=== PATIENT | female | born 1995 | race Caucasian/White ===

== ENCOUNTER 2018-12-21 05:41 | Inpatient (IN) | payer OTHER ==
[~2018-12-21] VITALS: Ht 160 cm; Wt 78.5 kg
[2018-12-21] MEDS ORDERED: PRENATAL TABLE1 EAC1 PO (09:19)
== END 2018-12-23 14:49 | disposition home or self-care (01) | DRG 807 ==
LOC: LDR 05:41 → OB/GYN 05:41 → LDR 09:17 → OB/GYN 16:48
PROVIDERS: ADMIT Obstetrics & Gynecology
PROC: 10E0XZZ Delivery of Products of Conception, External Approach (ICD-10-PCS; principal; 2018-12-21)
PROC: 0HQ9XZZ Repair Perineum Skin, External Approach (ICD-10-PCS; 2018-12-21)
PROC: 10907ZC Drainage of Amniotic Fluid, Therapeutic from Products of Conception, Via Natural or Artificial Opening (ICD-10-PCS; 2018-12-21)
PROC: 3E0P7VZ Introduction of Hormone into Female Reproductive, Via Natural or Artificial Opening (ICD-10-PCS; 2018-12-21)
PROC: 3E033VJ Introduction of Other Hormone into Peripheral Vein, Percutaneous Approach (ICD-10-PCS; 2018-12-21)
PROC: 4A1HXCZ Monitoring of Products of Conception, Cardiac Rate, External Approach (ICD-10-PCS; 2018-12-21)
DX: O70.0 First degree perineal laceration during delivery (principal); Z37.0 Single live birth; Z3A.39 39 weeks gestation of pregnancy; Z22.330 Carrier of Group B streptococcus

== ENCOUNTER 2020-06-05 08:24 | Inpatient (IN) | payer OTHER ==
[~2020-06-05] VITALS: Ht 160 cm; Wt 79.8 kg
[~2020-06-05 08:24] MED LIST: PRENATAL TABLE1 EAC1 PO
[2020-06-05] MEDS ORDERED: PRENATAL CAPLE1 EAC1 PO (09:16)
== END 2020-06-07 16:47 | disposition home or self-care (01) | DRG 798 ==
LOC: OB/GYN 08:24 → LDR 08:24 → OB/GYN 19:41
PROVIDERS: ADMIT Obstetrics & Gynecology; ATTEND Obstetrics & Gynecology
PROC: 10E0XZZ Delivery of Products of Conception, External Approach (ICD-10-PCS; principal; 2020-06-05)
PROC: 0UB70ZZ Excision of Bilateral Fallopian Tubes, Open Approach (ICD-10-PCS; 2020-06-06)
PROC: 4A1HXFZ Monitoring of Products of Conception, Cardiac Rhythm, External Approach (ICD-10-PCS; 2020-06-06)
PROC: 3E033VJ Introduction of Other Hormone into Peripheral Vein, Percutaneous Approach (ICD-10-PCS; 2020-06-06)
DX: O80 Encounter for full-term uncomplicated delivery (principal); Z37.0 Single live birth; Z3A.39 39 weeks gestation of pregnancy; Z30.2 Encounter for sterilization